=== PATIENT | female | born 1980 | race Caucasian/White ===

== ENCOUNTER 2021-09-19 18:18 | Emergency (ER) | payer OTHER ==
[~2021-09-19] VITALS: Ht 160 cm; Wt 81.6 kg
[2021-09-19] MEDS ORDERED: TOPROL XL25 M1 PO (18:31)
[2021-09-19] MEDS ORDERED: DICLOFENAC SODI75 MG PO (18:37)
[2021-09-19] MEDS ORDERED: NORFLEX100MG PO (18:37)
== END 2021-09-19 19:29 | disposition home or self-care (01) ==
LOC: ER 18:18
DX: S13.4XXA Sprain of ligaments of cervical spine, initial encounter (principal); V49.88XA Car occupant (driver) (passenger) injured in other specified transport accidents, initial encounter; Y93.89 Activity, other specified; Y92.89 Other specified places as the place of occurrence of the external cause; Y99.8 Other external cause status

== ENCOUNTER → 2021-10-05 | Emergency (ER) | payer OTHER ==
[~2021-10-05] VITALS: Ht 160 cm; Wt 77.6 kg
[~2021-10-05] MED LIST: DICLOFENAC SODI75 MG PO; NORFLEX100MG PO; TOPROL XL25 M1 PO
== END | disposition left against medical advice (07) ==
LOC: ER 07:45
DX: Z53.21 Procedure and treatment not carried out due to patient leaving prior to being seen by health care provider (principal)